=== PATIENT | female | born 1990 | race African-American/Black ===

== ENCOUNTER 2018-10-04 06:27 | Day surgery (SDC) | payer OTHER ==
[2018-10-02 10:22] LABS: Urine Appearance CLEAR; Urine Bilirubin NEGATIVE (NEG); Urine Blood NEGATIVE (NEG); Urine Color YELLOW; Urine Glucose NEGATIVE (NEG); Urine Protein NEGATIVE (NEG); Urine Specific Gravity 1.025 (1.005-1.030); Urine pH 6.5 (5.0-7.0)
[2018-10-02 10:23] LABS: Urine Microscopic Reflex NO UMIC
[2018-10-02 10:26] LABS: Absolute Lymphocytes (CBC) 2.3 K/uL (0.7-4.9); Absolute Monocytes 0.6 K/uL (0.1-1.3); Absolute Neutrophil 3.4 K/uL (1.8-8.0); Basophils % 0.6 % (0-1.3); Eosinophils % 2.6 % (0-4.4); Hematocrit 40.1 % (36.0-45.0); Lymphocytes % 35.1 % (15.3-44.8); Monocytes % 8.7 % (3.3-12.3); RBC Red Blood Cell Count 5.08 M/uL (3.86-4.86)
--- OUTSIDE RECORDS SUMMARY | 2018-10-04 06:30 | XMS REPORT | Summary of Care ---
:1990 Author Organization [facility] Address [address] [address], [place] [address]- Encounter HQ Farshad_alli(FIN) [phone] Date(s): 07/26/15 - 07/26/15 [facility] [address] [place] [address]- Discharge Disposition: Home Attending Physician: Kamilla Anne MD Vital Signs Most recent to oldest [Reference 1 2 3 Range]: Height 172.72 cm (07/26/15 5:25 PM) Temperature Oral [96.4-99.1 DegF] 98.6 DegF 98.6 DegF 99.2 DegF (07/26/15 9:40 PM) (07/26/15 7:33 PM) *HI* (07/26/15 5:25 PM) Blood Pressure [90-140/60-90 mmHg] 122/80 mmHg 126/78 mmHg 120/79 mmHg (07/26/15 9:40 PM) (07/26/15 8:58 PM) (07/26/15 7:33 PM) Respiratory Rate [14-20 BRMIN] 18 BRMIN 18 BRMIN 18 BRMIN (07/26/15 9:40 PM) (07/26/15 8:58 PM) (07/26/15 7:33 PM) Peripheral Pulse Rate [60-100 bpm] 95 bpm 101 bpm 113 bpm (07/26/15 9:40 PM) *HI* *HI* (07/26/15 8:58 PM) (07/26/15 7:33 PM) Weight 111.818 kg (07/26/15 5:25 PM) Body Mass Index 37.48 m2 (07/26/15 5:25 PM) Problem List No data available for this section Allergies, Adverse Reactions, Alerts Substance Reaction Severity Status iodine topical Active Latex Active NKDA Active Medications doxycycline hyclate 100 mg oral tablet 100 mg=1 tab, PO, Q12H, X 14 day, # 28 tab, 0 Refill(s) Start Date: 07/26/15 Stop Date: 08/09/15 Status: OrderedFlagyl 500 mg oral tablet 500 mg=1 tab, PO, Q8H, X 7 day, # 21 tab, 0 Refill(s) Start Date: 07/26/15 Stop Date: 08/02/15 Status: OrderedMotrin 600 mg oral tablet 600 mg=1 tab, PO, Q6H, PRN Pain, take with food, # 30 tab, 0 Refill(s) Start Date: 07/26/15 Status: OrderedRocephin + Sodium Chloride 0.9% IV 50 mL 250 mg, Route: IV, Drug form: PDR/INJ, ONCE, Dosing Weight 111.818, kg, Priority : STAT, Start date: 07/26/15 20:33:00, Stop date: 07/26/15 20:33:00 Notes: (Same As: Rocephin) Start Date: 07/26/15 Stop Date: 07/26/15 Status: CompletedSaline Flush 0.9% 10 mL, Route: IVP, Drug Form: INJ, Dosing Weight 97.727, kg, PRN, PRN Line Flush , Start date: 07/26/15 17:30:00, Duration: 30 day, Stop date: 08/25/15 18:29:00 Notes: (Same as: BD Posiflush) Start Date: 07/26/15 Stop Date: 07/27/15 Status: DiscontinuedSodium Chloride 0.9% (Bolus) IV 1,000 mL, 1,000 ml/hr, Infuse Over: 1 hr, Route: IV, 1,000, Drug form: INJ, ONCE , Priority: STAT, Dosing Weight 97.727 kg, Start date: 07/26/15 17:30:00, Duration: 1 doses or times, Stop date: 07/25/1616:30:00 Start Date: 07/26/15 Stop Date: 07/26/15 Status: CompletedZithromax 1,000 mg, 4 tab, Route: PO, Drug form: TAB, ONCE, Dosing Weight 111.818, kg, Start date: 07/26/15 20:33:00, Stop date: 07/26/15 20:33:00 Notes: Take 1 hour before or 2 hours after meals.(Same As: Zithromax) Start Date: 07/26/15 Stop Date: 07/26/15 Status: Completed Results BLOOD BANK RESULTS Most recent to oldest [Reference Range]: 1 ABO/Rh A POS *Unknown* (07/26/15 7:13 PM) Antibody Scrn Negative (07/26/15 7:13 PM) ELECTROLYTES Most recent to oldest [Reference Range]: 1 Sodium Lvl [135-145 mEq/L] 140 mEq/L (07/26/15 7:13 PM) Potassium Lvl [3.5-5.1 mEq/L] 3.7 mEq/L (07/26/15 7:13 PM) Chloride Lvl [95-109 mEq/L] 107 mEq/L (07/26/15:13 PM) CO2 [24-32 mEq/L] 26 mEq/L (07/26/15:13 PM) AGAP [10.0-20.0 mEq/L] 10.7 mEq/L (07/26/15 7:13 PM) CHEM PANEL Most recent to oldest [Reference Range]: 1 Creatinine Lvl [0.50-1.40 mg/dL] 0.91 mg/dL (07/26/15 7:13 PM) eGFR 104 mL/min/1.73m2 1 *NA* (07/26/15 7:13 PM) BUN [7-22 mg/dL] 6 mg/dL *LOW* (07/26/15:13 PM) B/C Ratio [6-25] 7 (07/26/15 7:13 PM) Glucose Lvl [70-99 mg/dL] 99 mg/dL (07/26/15 7:13 PM) Total Protein [6.4-8.4 g/dL] 7.4 g/dL (07/26/15 7:13 PM) Albumin Lvl [3.5-5.0 g/dL] 3.4 g/dL *LOW* (07/26/15:13 PM) Globulin [2.0-4.0 g/dL] 4.0 g/dL (07/26/15 7:13 PM) A/G Ratio [0.7-1.6] 0.8 (07/26/15 7:13 PM) Calcium Lvl [8.5-10.5 mg/dL] 8.4 mg/dL *LOW* (07/26/15 7:13 PM) ALT [0-65 unit/L] 17 unit/L (07/26/15 7:13 PM) AST [0-37 unit/L] 9 unit/L (07/26/15 7:13 PM) Alk Phos [39-136 unit/L] 64 unit/L (07/26/15 7:13 PM) Bili Total [0.2-1.3 mg/dL] 0.2 mg/dL (07/26/15 7:13 PM) 1Result Comment: The eGFR is calculated using the CKD-EPI formula. In most young , healthy individualsthe eGFR will be >90 mL/min/1.73m2. The eGFR declines with age. An eGFR of 60-89 may be normal in some populations, particularly the elderly, for whom the CKD-EPI formula has not been extensively validated. Use of the eGFR is not recommended in the following populations: Individuals with unstable creatinine concentrations, including patients and those with serious co-morbid conditions. Patients with extremes in muscle mass or diet. The data above are obtained from the National Kidney Disease Education Program ( NKDEP) which additionally recommends that when the eGFR is used in patients with extremes of body mass index for purposesof drug dosing, the eGFR should be multiplied by the estimated BMI.ENDOCRINOLOGY Most recent to oldest [Reference Range]: 1 hCG Tot <1 mIU/mL *NA* (07/26/15 7:13 PM) URINE AND STOOL Most recent to oldest [Reference Range]: 1 UA Turbidity [Clear] Clear (07/26/15 7:13 PM) UA Color [Yellow] Yellow *NA* (07/26/15 7:13 PM) UA pH [5.0-8.0] 5.0 (07/26/15 7:13 PM) UA Spec Grav [<=1.030] 1.014 (07/26/15 7:13 PM) UA Glucose [Negative mg/dL] Negative mg/dL *NA* (07/26/15 7:13 PM) UA Blood [Negative] Negative (07/26/15 7:13 PM) UA Ketones [Negative mg/dL] Negative mg/dL *NA* (07/26/15 7:13 PM) UA Protein [Negative mg/dL] Negative mg/dL (07/26/15 7:13 PM) UA Urobilinogen [0.1-1.0 mg/dL] <=1.0 mg/dL *NA* (07/26/15 7:13 PM) UA Bili [Negative] Negative *NA* (07/26/15 7:13 PM) UA Leuk Est [Negative] Negative (07/26/15 7:13 PM) UA Nitrite [Negative] Negative (07/26/15 7:13 PM) UA WBC [0-5 /HPF] <1 /HPF (07/26/15 7:13 PM) UA RBC [0-2 /HPF] <1 /HPF (07/26/15 7:13 PM) UA Bacteria [None Seen /HPF] Occasional /HPF *NA* (07/26/15 7:13 PM) UA Sq Epi [Few /LPF] Occasional /LPF *NA* (07/26/15 7:13 PM) UA Mucus [None Seen /LPF] Few /LPF *NA* (07/26/15 7:13 PM) HEMATOLOGY Most recent to oldest [Reference Range]: 1 WBC [3.7-10.4 K/CMM] 8.4 K/CMM (07/26/15 7:13 PM) RBC [4.20-5.40 M/CMM] 4.73 M/CMM (07/26/15 7:13 PM) Hgb [12.0-16.0 g/dL] 11.6 g/dL *LOW* (07/26/15 7:13 PM) Hct [36.0-48.0 %] 36.9 % (07/26/15 7:13 PM) MCV [80.0-98.0 fL] 78.1 fL *LOW* (07/26/15 7:13 PM) MCH [27.0-31.0 pg] 24.6 pg *LOW* (07/26/15 7:13 PM) MCHC [32.0-36.0 g/dL] 31.5 g/dL *LOW* (07/26/15 7:13 PM) RDW [11.5-14.5 %] 14.5 % (07/26/15 7:13 PM) Platelet [133-450 K/CMM] 280 K/CMM (07/26/15 7:13 PM) MPV [7.4-10.4 fL] 7.9 fL (07/26/15 7:13 PM) Segs [45.0-75.0 %] 68.2 % (07/26/15 7:13 PM) Lymphocytes [20.0-40.0 %] 21.8 % (07/26/15 7:13 PM) Monocytes [2.0-12.0 %] 8.2 % (07/26/15 7:13 PM) Eosinophils [0.0-4.0 %] 0.9 % (07/26/15 7:13 PM) Basophils [0.0-1.0 %] 0.9 % (07/26/15 7:13 PM) Segs-Bands # [1.5-8.1 K/CMM] 5.7 K/CMM (07/26/15 7:13 PM) Lymphocytes # [1.0-5.5 K/CMM] 1.8 K/CMM (07/26/15 7:13 PM) Monocytes # [0.0-0.8 K/CMM] 0.7 K/CMM (07/26/15 7:13 PM) Eosinophils # [0.0-0.5 K/CMM] 0.1 K/CMM (07/26/15 7:13 PM) Basophils # [0.0-0.2 K/CMM] 0.1 K/CMM (07/26/15 7:13 PM) Microcyte [None Seen] 1+ *ABN* (07/26/15 7:13 PM) MOLECULAR DIAGNOSTIC Most recent to oldest [Reference Range]: 1 Source [facility] Endocervix *NA* (07/26/15 8:17 PM) N gonorrhea by Amp Det ([facility]) [Negative] Negative *NA* (07/26/15 8:17 PM) C trachomatis by Amp Det ([facility]) [Negative] Negative *NA* (07/26/15 8:17 PM) Immunizations No data available for this section Procedures No data available for this section Social History Social History Type Response Smoking Status Never smoker; Type: Cigarettes; Exposure to Tobacco Smoke None; Cigarette Smoking Last 365 Days No; Reg Smoking Cessation Counseling No Assessment and Plan No data available for this section
--- OUTSIDE RECORDS SUMMARY | 2018-10-04 06:30 | XMS REPORT | Continuity of Care Document ---
:1990 Author Organization Interface Problems Problem Status Onset Classification Date Comments Source Date Reported Discharge 09/05/19 09/07/2016 [place] Diagnosis: 17 Cholelithiasis STOMACH PAIN Active 09/05/19 [facility] 17 [place] PELVIC PAIN Active 07/26/19 [facility] 16 Medications Medication Details Route Status Patient Ordering Order Source Instructions Provider Date Famotidine 20 20 mg=1 tab, Active MG Oral Tablet PO, BID, # 60 2016 [place] [Pepcid] tab, 0 Refill(s) Dicyclomine 20 mg=1 tab, Active Hydrochloride PO, 2017 [place] 20 MG Oral QID-Before Tablet [Bentyl] Meals, PRN Abdominal Pain, # 60 tab, 0 Refill(s) GI cocktail 30 mL, Route: Inactive PO, Drug 2016 [place] Form: SUSP, Dosing Weight 104.545, kg, ONCE, STAT, Start date: 09/04/16 2:23:00 CDT, Stop date: 09/04/16 2:23:00 CDTNotes: G.I. Cocktail=[place] with simethicone 22.5 mL - lidocaine viscous 7.5 mL Famotidine 20 mg, 2 mL, Inactive Route: IVP, 2016 [place] Drug form: INJ, ONCE, Dosing Weight 104.545, kg, Priority: STAT, Start date: 09/04/16 2:23:00 CDT, Stop date: 09/04/16 2:23:00 CDTNotes: (Same as: Pepcid) Can be dilute in 5-10cc NS IVP: Slow IV push over at least 2 minutes. Saline Flush 10 mL, Route: Inactive 0.9% IVP, Drug 2016 [place] Form: INJ, Dosing Weight 104.545, kg, PRN, PRN Line Flush, Start date: 09/04/16 2:23:00 CDT, Duration: 30 day, Stop date: 10/04/16 2:22:00 CDTNotes: (Same as: BD Posiflush) Sodium Chloride 1,000 mL, Inactive 0.154 MEQ/ML 2,000 ml/hr, 2017 [place] Injectable Infuse Over: Solution 30 minutes, Route: IV, 1,000, Drug form: INJ, ONCE, Priority: STAT, Dosing Weight 104.545 kg, Start date: 09/04/16 2:23:00 CDT, Duration: 1 doses or times, Stop date: 09/04/16 2:23:00 CDT Ibuprofen 600 600 mg=1 tab, Active MG Oral Tablet PO, Q6H, PRN 2015 [Motrin] Pain, take with food, # 30 tab, 0 Refill(s) Metronidazole 500 mg=1 tab, Active 500 MG Oral PO, Q8H, X 7 2015 [facility] Tablet [Flagyl] day, # 21 tab, 0 Refill(s) doxycycline 100 mg=1 tab, Active hyclate 100 mg PO, Q12H, X 2016 [facility] oral tablet 14 day, # 28 tab, 0 Refill(s) Zithromax 1,000 mg, 4 Inactive tab, Route: 2015 PO, Drug form: TAB, ONCE, Dosing Weight 111.818, kg, Start date: 07/26/15 20:33:00, Stop date: 07/26/15 20:33:00Notes : Take 1 hour before or 2 hours after meals. (Same As: Zithromax) Rocephin 250 mg, Inactive Route: IV, 2015 Drug form: PDR/INJ, ONCE, Dosing Weight 111.818, kg, Priority: STAT, Start date: 07/26/15 20:33:00, Stop date: 07/26/15 20:33:00Notes : (Same As: Rocephin) Saline Flush 10 mL, Route: No Longer 0.9% IVP, Drug Active 2015 Form: INJ, Dosing Weight 97.727, kg, PRN, PRN Line Flush, Start date: 07/26/15 17:30:00, Duration: 30 day, Stop date: 08/25/15 18:29:00Notes : (Same as: BD Posiflush) Sodium Chloride 1,000 mL, Inactive 0.154 MEQ/ML 1,000 ml/hr, 2015 [facility] Injectable Infuse Over: Solution 1 hr, Route: IV, 1,000, Drug form: INJ, ONCE, Priority: STAT, Dosing Weight 97.727 kg, Start date: 07/26/15 17:30:00, Duration: 1 doses or times, Stop date: 07/26/15 17:30:00 Allergies, Adverse Reactions, Alerts Substance Category Reaction Severity Reaction Status Date Comments Source type Reported iodine Assertion Drug Active topical allergy [place] Latex Assertion Drug Active allergy [place] Immunizations Immunization Date Given Site Status Last Updated Comments Source Results Order Name Results Value Reference Date Interpretation Comments Source Range URINE AND UA Turbidity Clear Clear 09/04 [place] (09/04/16 2:42 AM) URINE AND UA Color Yellow Yellow 09/04 [place] *NA* (09/04/16 2:42 AM) URINE AND UA pH 7.5 5.0 - 8.0 09/04 [place] URINE AND UA Spec Grav 1.010 <=1.030 09/04 [place] URINE AND UA Bili Negative Negative 09/04 [place] *NA* (09/04/16 2:42 AM) URINE AND UA Ketones Negative Negative 09/04 [place] *NA* (09/04/16 2:42 AM) URINE AND UA 0.2 EU/dL 0.1 - 1.0 09/04 [facility] Urobilinogen [place] URINE AND UA Blood Negative Negative 09/04 [place] (09/04/16 2:42 AM) URINE AND UA Glucose Negative Negative 09/04 STOOL [place] (09/04/16 2:42 AM) URINE AND UA Protein Negative Negative 09/04 [place] (09/04/16 2:42 AM) URINE AND UA Sq Epi Rare /LPF Few /LPF 09/04 [place] URINE AND UA Leuk Est Trace Negative 09/04 [place] *ABN* (09/04/16 2:42 AM) URINE AND UA RBC None Seen 0 - 2 09/04 STO[facility] /2016 [place] (09/04/16 2:42 AM) URINE AND UA WBC 0-2 /HPF None Seen 09/04 [facility] /HPF [place] URINE AND UA Nitrite Negative Negative 09/04 STOOL /2016 [place] (09/04/16 2:42 AM) URINE AND UA Bacteria Moderate None Seen 09/04 [facility] /HPF /HPF [place] CHEM PANEL Lipase Lvl 130 unit/L 73 - 393 09/04 [place] CHEM PANEL B/C Ratio 9 6 - 25 09/04 [place] CHEM PANEL AGAP 9.9 meq/L 10.0 - 09/04 MH 20.0 [place] CHEM PANEL Globulin 3.8 g/dL 2.7 - 4.2 09/04 [place] CHEM PANEL A/G Ratio 0.8 0.7 - 1.6 09/04 [place] CHEM PANEL Bili Total 0.2 mg/dL 0.2 - 1.3 09/04 [place] CHEM PANEL ASPARTATE 13 unit/L 0 - 37 09/04 [place] CHEM PANEL Total 6.9 g/dL 6.4 - 8.4 09/04 [place] CHEM PANEL Chloride Lvl 105 meq/L 95 - 109 09/04 [place] CHEM PANEL Potassium 3.9 meq/L 3.5 - 5.1 09/04 MH Lvl [place] CHEM PANEL Sodium Lvl 140 meq/L 135 - 145 09/04 [place] CHEM PANEL Creatinine 0.80 mg/dL 0.50 - 09/04 MH Lvl 1.40 [place] CHEM PANEL Glucose Lvl 99 mg/dL 70 - 99 09/04 [place] CHEM PANEL Calcium Lvl 8.5 mg/dL 8.5 - 10.5 09/04 [place] CHEM PANEL CO2 29 meq/L 24 - 32 09/04 [place] CHEM PANEL Alk Phos 62 unit/L 39 - 136 09/04 [place] CHEM PANEL Albumin Lvl 3.1 g/dL 3.5 - 5.0 09/04 [place] CHEM PANEL ALANINE 19 unit/L 0 - 65 09/04 AMINOTRANS [place] RASE CHEM PANEL BUN 7 mg/dL 7 - 09/04 [place] CHEM PANEL eGFR 121 09/04 Result Comment: The eGFR is calculated using the CKD-EPI formula. In most young, healthy individuals the eGFR will be >90 mL/ min/1.73m2. The eGFR declines with age. An eGFR of 60-89 may be normal in mL/min/1.7 some populations, particularly the elderly, for whom the CKD-EPI formula has not been extensively validated. Use of the eGFR is not recommended in the following populations: [address] Individuals with unstable creatinine concentrations, including patients and those with serious co-morbid conditions. Patients with extremes in muscle mass or diet. The data above are obtained from the National Kidney Disease Education Program (NKDEP) which additionally recommends that when the eGFR is used in patients with extremes of body mass index for purposes of drug dosing, the eGFR should be multiplied by the estimated BMI. ENDOCRINOL S Preg Negative Negative 09/04 [facility] [place] *NA* (09/04/16 2:37 AM) HEMATOLOGY MCHC 32.6 g/dL 32.0 - 09/04 MH 36.0 [place] HEMATOLOGY WBC X 10x3 7.1 K/CMM 3.7 - 10.4 09/04 [place] HEMATOLOGY RBC X 10x6 4.56 M/CMM 4.20 - 09/04 MH 5.40 [place] HEMATOLOGY RDW 14.2 % 11.5 - 09/04 MH 14.5 [place] HEMATOLOGY MPV 7.9 fL 7.4 - 10.4 09/04 [place] HEMATOLOGY Platelet 241 K/CMM 133 - 450 09/04 [place] HEMATOLOGY Hct 35.2 % 36.0 - 09/04 MH 48.0 [place] HEMATOLOGY Hgb 11.5 g/dL 12.0 - 09/04 MH 16.0 [place] HEMATOLOGY MCH 25.2 pg 27.0 - 09/04 MH 31.0 [place] HEMATOLOGY MCV 77.2 fL 80.0 - 09/04 MH 98.0 [place] HEMATOLOGY Eosinophils 0.2 K/CMM 0.0 - 0.5 09/04 MH # /2016 [place] HEMATOLOGY Monocytes # 0.6 K/CMM 0.0 - 0.8 09/04 [place] HEMATOLOGY Microcyte 1+ None Seen 09/04 [place] *ABN* (09/04/16 2:37 AM) HEMATOLOGY Eosinophils 2.9 % 0.0 - 4.0 09/04 [place] HEMATOLOGY Monocytes 8.6 % 2.0 - 12.0 09/04 [place] HEMATOLOGY Basophils 0.7 % 0.0 - 1.0 09/04 [place] HEMATOLOGY Lymphocytes 2.5 K/CMM 1.0 - 5.5 09/04 # /2017 [place] HEMATOLOGY Segs-Bands # 3.8 K/CMM 1.5 - 8.1 09/04 [place] HEMATOLOGY Lymphocytes 34.7 % 20.0 - 09/04 40.0 [place] HEMATOLOGY Segs 53.1 % 45.0 - 09/04 75.0 [place] Abdomen Abdomen RUQ Exam: Gallbladder Ultrasound 09/04 - [facility] RUQ US US /2016 - [place] Clinical indication: RUQ abdominal pain. Read by: Pete Cohen MD Dictated Date/time: 09/04/16 03:14 Electronically Signed by: Pete Cohen MD 09/04/16 03:39 FINAL REPORT Technique: Gallbladder ultrasound is performed. Findings: Exam shows normal liver measuring 15.1 cm. Cholelithiasis noted. Pancreas is visualized and normal. There is no intra or extrahepatic biliary duct dilation, with CBD=4 mm. Right kidney is normal and me asures 11 x 6.1 x 4.1 cm. There is no free fluid. Impression: 1. Cholelithiasis. MOLECULAR N gonorrhea Negative Negative 07/26 DIAGNOSTIC by Amp Det /2015 [facility] ([facility]) *NA* (07/26/15 8:17 PM) MOLECULAR Source Endocervix 07/26 DIAGNOSTIC [facility] /2015 [facility] *NA* (07/26/15 8:17 PM) MOLECULAR C Negative Negative 07/26 DIAGNOSTIC trachomatis [place] by Amp Det *NA* ([facility]) (07/26/15 8:17 PM) BLOOD BANK Antibody Negative 07/26 RESULTS Scrn [facility] (07/26/15 7:13 PM) BLOOD BANK ABO/Rh A POS 07/26 MH RESULTS /2015 [facility] CHEM PANEL B/C Ratio 7 6 - 25 07/26 [facility] CHEM PANEL A/G Ratio 0.8 0.7 - 1.6 07/26 [facility] CHEM PANEL Globulin 4.0 g/dL 2.0 - 4.0 07/26 [facility] CHEM PANEL AGAP 10.7 meq/L 10.0 - 07/26 MH 20.0 [facility] CHEM PANEL eGFR 104 07/26 Result Comment: The eGFR is calculated using the CKD-EPI formula. In most young, healthy individuals the eGFR will be >90 mL/ min/1.73m2. The eGFR declines with age. An eGFR of 60-89 may be normal in mL/min/1.7 /2015 some populations, particularly the elderly, for whom the CKD-EPI formula has not been extensively validated. Use of the eGFR is not recommended in the following populations: [facility] 3m2 Individuals with unstable creatinine concentrations, including patients and those with serious co-morbid conditions. Patients with extremes in muscle mass or diet. The data above are obtained from the National Kidney Disease Education Program (NKDEP) which additionally recommends that when the eGFR is used in patients with extremes of body mass index for purposes of drug dosing, the eGFR should be multiplied by the estimated BMI. CHEM PANEL CO2 26 meq/L 24 - 32 07/26 [facility] CHEM PANEL Albumin Lvl 3.4 g/dL 3.5 - 5.0 07/26 [facility] CHEM PANEL Total 7.4 g/dL 6.4 - 8.4 07/26 [facility] CHEM PANEL Chloride Lvl 107 meq/L 95 - 109 07/26 [facility] CHEM PANEL Calcium Lvl 8.4 mg/dL 8.5 - 10.5 07/26 [facility] CHEM PANEL Sodium Lvl 140 meq/L 135 - 145 07/26 [facility] CHEM PANEL Glucose Lvl 99 mg/dL 70 - 99 07/26 [facility] CHEM PANEL Creatinine 0.91 mg/dL 0.50 - 03 [facility] Lvl 1.40 /2015 [facility] CHEM PANEL BUN 6 mg/dL 7 - 22 07/26 [facility] CHEM PANEL Potassium 3.7 meq/L 3.5 - 5.1 07/26 MH Lvl /2015 [facility] CHEM PANEL Alk Phos 64 unit/L 39 - 136 07/26 [facility] CHEM PANEL AST 9 unit/L 0 - 37 07/26 [facility] CHEM PANEL ALT 17 unit/L 0 - 65 07/26 [facility] CHEM PANEL Bili Total 0.2 mg/dL 0.2 - 1.3 07/26 [facility] ENDOCRINOL hCG Tot null 07/26 OG [facility] HEMATOLOGY Microcyte 1+ None Seen 07/26 [facility] *ABN* (07/26/15 7:13 PM) HEMATOLOGY Monocytes 8.2 % 2.0 - 12.0 07/26 [facility] HEMATOLOGY Eosinophils 0.9 % 0.0 - 4.0 07/26 [facility] HEMATOLOGY Basophils 0.9 % 0.0 - 1.0 07/26 [facility] HEMATOLOGY Lymphocytes 21.8 % 20.0 - 07/26 40.0 [facility] HEMATOLOGY Eosinophils 0.1 K/CMM 0.0 - 0.5 07/26 # /2015 [facility] HEMATOLOGY Basophils # 0.1 K/CMM 0.0 - 0.2 07/26 [facility] HEMATOLOGY Segs-Bands # 5.7 K/CMM 1.5 - 8.1 07/26 [facility] HEMATOLOGY Lymphocytes 1.8 K/CMM 1.0 - 5.5 07/26 # /2015 [facility] HEMATOLOGY Monocytes # 0.7 K/CMM 0.0 - 0.8 07/26 [facility] HEMATOLOGY Segs 68.2 % 45.0 - 07/26 MH 75.0 /2015 [facility] HEMATOLOGY MCHC 31.5 g/dL 32.0 - 07/26 MH 36.0 [facility] MCH 24.6 pg 27.0 - 07/26 MH 31.0 [facility] HEMATOLOGY MCV 78.1 fL 80.0 - 07/26 MH 98.0 [facility] HEMATOLOGY MPV 7.9 fL 7.4 - 10.4 07/26 [facility] HEMATOLOGY Platelet 280 K/CMM 133 - 450 07/26 [facility] HEMATOLOGY RDW 14.5 % 11.5 - 07/26 MH 14. [facility] HEMATOLOGY Hct 36.9 % 36.0 - 07/26 MH 48.0 [facility] HEMATOLOGY Hgb 11.6 g/dL 12.0 - 07/26 MH 16.0 [facility] HEMATOLOGY RBC 4.73 M/CMM 4.20 - 07/26 MH 5.40 /2015 HEMATOLOGY WBC 8.4 K/CMM 3.7 - 10.4 07/26 [facility] URINE AND UA <=1.0 0.1 - 1.0 07/26 [facility] Urobilinogen mg/dL URINE AND UA WBC null 0 - 5 07/26 URINE AND UA Sq Epi Occasional Few /LPF 07/26 [facility] /LPF URINE AND UA RBC null 0 - 2 07/26 URINE AND UA Mucus Few /LPF None Seen 07/26 [facility] /LPF URINE AND UA Bacteria Occasional None Seen 07/26 [facility] /HPF /HPF URINE AND UA Bili Negative Negative 07/26 *NA* (07/26/15 7:13 PM) URINE AND UA Blood Negative Negative 07/26 (07/26/15 7:13 PM) URINE AND UA Nitrite Negative Negative 07/26 (07/26/15 7:13 PM) URINE AND UA Leuk Est Negative Negative 07/26 (07/26/15 7:13 PM) URINE AND UA Protein Negative Negative 07/26 [facility] mg/dL mg/dL URINE AND UA Ketones Negative Negative 07/26 [facility] mg/dL mg/dL URINE AND UA Glucose Negative Negative 07/26 [facility] mg/dL mg/dL URINE AND UA pH 5.0 5.0 - 8.0 07/26 [facility] URINE AND UA Spec Grav 1.014 <=1.030 07/26 [facility] URINE AND UA Turbidity Clear Clear 07/26 (07/26/15 7:13 PM) URINE AND UA Color Yellow Yellow 07/26 *NA* (07/26/15 7:13 PM) Vital Signs Vital Sign Value Date Comments Source Systolic (mm Hg) 120 09/04/2016 [facility] Diastolic (mm Hg) 83 09/04/2016 [facility] Respitory Rate 17 09/04/2016 [facility] Temperature Oral (F) 98.2 F 09/04/2016 [facility] Heart Rate 81 09/04/2016 [facility] Weight 104.545 09/04/2016 [facility] Systolic (mm Hg) 128 09/04/2016 [facility] Diastolic (mm Hg) 98 09/04/2016 [facility] Heart Rate 94 09/04/2016 [facility] Respitory Rate 18 09/04/2016 [facility] Temperature Oral (F) 98.1 F 09/04/2016 [facility] Systolic (mm Hg) 122 07/27/2015 [facility] Diastolic (mm Hg) 80 07/27/2015 [facility] Respitory Rate 18 07/27/2015 [facility] Heart Rate 95 07/27/2015 [facility] Temperature Oral (F) 98.6 F 07/27/2015 [facility] Systolic (mm Hg) 126 07/27/2015 [facility] Diastolic (mm Hg) 78 07/27/2015 [facility] Heart Rate 101 07/27/2015 [facility] Respitory Rate 18 07/27/2015 [facility] Respitory Rate 18 07/27/2015 [facility] Temperature Oral (F) 98.6 F 07/27/2015 [facility] Heart Rate 113 07/27/2015 [facility] Systolic (mm Hg) 120 07/27/2015 [facility] Diastolic (mm Hg) 79 07/27/2015 [facility] Temperature Oral (F) 99.2 F 07/26/2015 [facility] Height 172.72 cm 07/26/2015 [facility] BMI Calculated 37.48 07/26/2015 [facility] Weight 111.818 07/26/2015 [facility] Encounters Location Location Encounter Encounter Reason Attending ADM DC Status Source Details Type Number For Provider Date Date Visit [facility] [id number] Kamilla 07/25 07/26 Dino Anne /2015 [facility] Emergency [id number] Yogi 09/04 09/04 Dino Clancy /2016 [facility] Procedures Procedure Code Date Perfomer Comments Source
--- OUTSIDE RECORDS SUMMARY | 2018-10-04 06:30 | XMS REPORT | Summary of Care ---
:[address] [facility] Address [id number] [place] [id number] Encounter [facility]rest[facility](SAUL) [id number] Date(s): 09/04/16 - 09/04/[address] [phone] Discharge Diagnosis: Cholelithiasis Discharge Disposition: Home or Self Care Attending Physician: Yogi Clancy MD Vital Signs Most recent to oldest [Reference Range]: 1 2 Temperature Oral [96.4-99.1 DegF] 98.2 DegF 98.1 DegF (09/04/16 4:34 AM) (09/04/16 2:08 AM) Blood Pressure [90-140/60-90 mmHg] 120/83 mmHg 128/98 mmHg (09/04/16 4:34 AM) (09/04/16 2:08 AM) Respiratory Rate [14-20 BRMIN] 17 BRMIN 18 BRMIN (09/04/16 4:34 AM) (09/04/16 2:08 AM) Peripheral Pulse Rate [60-100 bpm] 81 bpm 94 bpm (09/04/16 4:34 AM) (09/04/16 2:08 AM) Weight 104.545 kg (09/04/16 2:08 AM) Problem List No data available for this section Allergies, Adverse Reactions, Alerts Substance Reaction Severity Status iodine topical Active Latex Active NKDA Active Medications Bentyl 20 mg oral tablet 20 mg=1 tab, PO, QID-Before Meals, PRN Abdominal Pain, # 60 tab, 0 Refill(s) Start Date: 09/04/16 Status: Orderedfamotidine 20 mg, 2 mL, Route: IVP, Drug form: INJ, ONCE, Dosing Weight 104.545, kg, Priority: STAT, Start date: 09/04/16 2:23:00 CDT, Stop date: 09/04/16 2:23:00 CDT Notes: (Same as: Pepcid)Can be dilute in 5-10cc NS IVP: Slow IV push over at least 2 minutes. Start Date: 09/04/16 Stop Date: 09/04/16 Status: CompletedGI cocktail 30 mL, Route: PO, Drug Form: SUSP, Dosing Weight 104.545, kg, ONCE, STAT, Start date: 09/04/16 2:23:00 CDT, Stop date: 09/04/16 2:23:00 CDT Notes: G.I. Cocktail=antacid with simethicone 22.5 mL - lidocaine viscous 7.5 mL Start Date: 09/04/16 Stop Date: 09/04/16 Status: CompletedPepcid 20 mg oral tablet 20 mg=1 tab, PO, BID, # 60 tab, 0 Refill(s) Start Date: 09/04/16 Status: OrderedSaline Flush 0.9% 10 mL, Route: IVP, Drug Form: INJ, Dosing Weight 104.545, kg, PRN, PRN Line Flush, Start date: 09/04/16 2:23:00 CDT, Duration: 30 day, Stop date: 10/04/16 2 :22:00 CDT Notes: (Same as: BD Posiflush) Start Date: 09/04/16 Stop Date: 09/04/16 Status: DiscontinuedSodium Chloride 0.9% (Bolus) IV 1,000 mL, 2,000 ml/hr, Infuse Over: 30 minutes, Route: IV, 1,000, Drug form: INJ , ONCE, Priority: STAT, Dosing Weight 104.545 kg, Start date: 09/04/16 2:23:00 CDT, Duration: 1 doses or times, Stop date: 09/04/16 2:23:00 CDT Start Date: 09/04/16 Stop Date: 09/04/16 Status: Completed Results ELECTROLYTES Most recent to oldest [Reference Range]: 1 Sodium Lvl [135-145 mEq/L] 140 mEq/L (09/04/16 2:37 AM) Potassium Lvl [3.5-5.1 mEq/L] 3.9 mEq/L (09/04/16 2:37 AM) Chloride Lvl [95-109 mEq/L] 105 mEq/L (09/04/16 2:37 AM) CO2 [24-32 mEq/L] 29 mEq/L (09/04/16 2:37 AM) AGAP [10.0-20.0 mEq/L] 9.9 mEq/L *LOW* (09/04/16 2:37 AM) CHEM PANEL Most recent to oldest [Reference Range]: 1 Creatinine Lvl [0.50-1.40 mg/dL] 0.80 mg/dL (09/04/16 2:37 AM) eGFR 121 mL/min/1.73m2 1 *NA* (09/04/16 2:37 AM) BUN [7-22 mg/dL] 7 mg/dL (09/04/16 2:37 AM) B/C Ratio [6-25] 9 (09/04/16 2:37 AM) Glucose Lvl [70-99 mg/dL] 99 mg/dL (09/04/16 2:37 AM) Total Protein [6.4-8.4 g/dL] 6.9 g/dL (09/04/16 2:37 AM) Albumin Lvl [3.5-5.0 g/dL] 3.1 g/dL *LOW* (09/04/16 2:37 AM) Globulin [2.7-4.2 g/dL] 3.8 g/dL (09/04/16 2:37 AM) A/G Ratio [0.7-1.6] 0.8 (09/04/16 2:37 AM) Calcium Lvl [8.5-10.5 mg/dL] 8.5 mg/dL (09/04/16 2:37 AM) ALT [0-65 unit/L] 19 unit/L (09/04/16 2:37 AM) AST [0-37 unit/L] 13 unit/L (09/04/16 2:37 AM) Alk Phos [39-136 unit/L] 62 unit/L (09/04/16 2:37 AM) Bili Total [0.2-1.3 mg/dL] 0.2 mg/dL (09/04/16 2:37 AM) Lipase Lvl [73-393 unit/L] 130 unit/L (09/04/16 2:37 AM) 1Result Comment: The eGFR is calculated using [...] Most recent to oldest [Reference Range]: 1 S Preg [Negative] Negative *NA* (09/04/16 2:37 AM) URINE AND STOOL Most recent to oldest [Reference Range]: 1 UA Turbidity [Clear] Clear (09/04/16 2:42 AM) UA Color [Yellow] Yellow *NA* (09/04/16 2:42 AM) UA pH [5.0-8.0] 7.5 (09/04/16 2:42 AM) UA Spec Grav [<=1.030] 1.010 (09/04/16 2:42 AM) UA Glucose [Negative] Negative (09/04/16 2:42 AM) UA Blood [Negative] Negative (09/04/16 2:42 AM) UA Ketones [Negative] Negative *NA* (09/04/16 2:42 AM) UA Protein [Negative] Negative (09/04/16 2:42 AM) UA Urobilinogen [0.1-1.0 EU/dL] 0.2 EU/dL (09/04/16 2:42 AM) UA Bili [Negative] Negative *NA* (09/04/16 2:42 AM) UA Leuk Est [Negative] Trace *ABN* (09/04/16 2:42 AM) UA Nitrite [Negative] Negative (09/04/16 2:42 AM) UA WBC [None Seen /HPF] 0-2 /HPF (09/04/16 2:42 AM) UA RBC [0-2] None Seen (09/04/16 2:42 AM) UA Bacteria [None Seen /HPF] Moderate /HPF (09/04/16 2:42 AM) UA Sq Epi [Few /LPF] Rare /LPF (09/04/16 2:42 AM) HEMATOLOGY Most recent to oldest [Reference Range]: 1 WBC [3.7-10.4 K/CMM] 7.1 K/CMM (09/04/16 2:37 AM) RBC [4.20-5.40 M/CMM] 4.56 M/CMM (09/04/16 2:37 AM) Hgb [12.0-16.0 g/dL] 11.5 g/dL *LOW* (09/04/16 2:37 AM) Hct [36.0-48.0 %] 35.2 % *LOW* (09/04/16 2:37 AM) MCV [80.0-98.0 fL] 77.2 fL *LOW* (09/04/16 2:37 AM) MCH [27.0-31.0 pg] 25.2 pg *LOW* (09/04/16 2:37 AM) MCHC [32.0-36.0 g/dL] 32.6 g/dL (09/04/16 2:37 AM) RDW [11.5-14.5 %] 14.2 % (09/04/16 2:37 AM) Platelet [133-450 K/CMM] 241 K/CMM (09/04/16 2:37 AM) MPV [7.4-10.4 fL] 7.9 fL (09/04/16 2:37 AM) Segs [45.0-75.0 %] 53.1 % (09/04/16 2:37 AM) Lymphocytes [20.0-40.0 %] 34.7 % (09/04/16 2:37 AM) Monocytes [2.0-12.0 %] 8.6 % (09/04/16 2:37 AM) Eosinophils [0.0-4.0 %] 2.9 % (09/04/16 2:37 AM) Basophils [0.0-1.0 %] 0.7 % (09/04/16 2:37 AM) Segs-Bands # [1.5-8.1 K/CMM] 3.8 K/CMM (09/04/16 2:37 AM) Lymphocytes # [1.0-5.5 K/CMM] 2.5 K/CMM (09/04/16 2:37 AM) Monocytes # [0.0-0.8 K/CMM] 0.6 K/CMM (09/04/16 2:37 AM) Eosinophils # [0.0-0.5 K/CMM] 0.2 K/CMM (09/04/16 2:37 AM) Microcyte [None Seen] 1+ *ABN* (09/04/16 2:37 AM) Immunizations No data available for this section Procedures No data available for this section Social History Social History Type Response Smoking Status Never smoker; Type: Cigarettes; Exposure to Tobacco Smoke None; Cigarette Smoking Last 365 Days No; Reg Smoking Cessation Counseling No Assessment and Plan No data available for this section
[2018-10-04] MEDS ORDERED: SCOPOLAMINE HYDROBROMIDE PATCH TD ONE (06:56)
[2018-10-04] MEDS ORDERED: Ringers Lactate 1,000 ML IV ONE (06:56)
[2018-10-04] MEDS ORDERED: NA CHLORIDE 0.9% 1,000 ML ONE (07:26)
[2018-10-04] MEDS ORDERED: PROPOFOL 200 MG/20 ML VIAL IV ONE (07:26)
[2018-10-04] MEDS ORDERED: ROCURONIUM 50 MG/5 ML VIAL IV ONE ×2 (07:27→09:24)
[2018-10-04] MEDS ORDERED: DEXAMETHASONE 10 MG/ML VIAL ONE (07:28)
[2018-10-04] MEDS ORDERED: GLYCOPYRROLATE 0.2 MG/ML SYR ONE (07:28)
[2018-10-04] MEDS ORDERED: LIDOCAINE 2% MPF 5 ML VIAL ONE (07:29)
[2018-10-04] MEDS ORDERED: FENTANYL CITR 250 MCG/5 ML ONE (07:29)
[2018-10-04] MEDS ORDERED: MIDAZOLAM HCL 2 MG/2 ML INJ ONE (07:30)
[2018-10-04] MEDS ORDERED: NEOSTIGMINE 1 MG/ML -10 ML VIAL ONE (07:32)
[2018-10-04] MEDS ORDERED: ONDANSETRON 4 MG/2 ML VIAL ONE ×2 (07:32→09:44)
[2018-10-04] MEDS: Ringers Lactate 1,000 ML IV ONE ×2 (08:34→08:36)
[2018-10-04] MEDS ORDERED: FENTANYL CITR 100 MCG/2 ML ONE (09:11)
[2018-10-04] MEDS ORDERED: KETOROLAC 30 MG/ML INJ ONE (09:32)
[2018-10-04] MEDS: HYDROMORPHONE HCL 1 MG/ML INJ ONE ×5 (09:57→10:20)
[2018-10-04] MEDS ORDERED: HYDROCODONE/APAP 5/325 MG TAB ONE (11:05)
--- NOTE | 2018-10-04 13:30 | OP ---
Date of Procedure: 10/04/2018 Surgeon: Delmis Coronel MD Preoperative Diagnoses: Menorrhagia, dysmenorrhea, pelvic pain. Postoperative Diagnoses: Menorrhagia, dysmenorrhea, pelvic pain, endometrial polyp through which the intrauterine device was placed, and endometriosis. Procedures Performed: 1.Diagnostic hysteroscopy, removal of intrauterine device, and endometrial polypectomy, dilation and curettage. 2.Diagnostic laparoscopy, endometriosis excision. Anesthesia: General endotracheal. Specimens: Endometrial polyp, endometriosis from right periureteric area, right posterior broad liga ment, cul-de-sac, left uterosacral ligament, and left lateral wall. Ovaries, tubes unremarkable. The rest of the peritoneal cavity without any signs of endometriosis. The appendix appeared to be long, slightly erythematous at the tip, however, no evidence of any infla mmation or endometriosis on it. Upper abdominal surface was completely unremarkable. The patient is a 27-year-old with complaints of heavy bleeding and severe cramping. She was evaluate d and then a transvaginal ultrasound was done. No adnexal masses were noted for treatment of her ble eding and cramps. She is 1, para 1, without any desire for conception any time soon, so a Mi lalo IUD was placed for treatment of these symptoms. 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 It was difficult to perform her daily activities due to this. There were bouts of diarrhea with stress, but no other symptoms with the bowels or urination during her periods. So on examination, her exam is with a slightly enlarged uterus. The rest of the things unremarkabl e. Strings in place. We discussed about the options of ongoing observation, removal of IUD with a t rial of oral contraceptives, or depot medroxyprogesterone. The patient desired to go ahead with diag nostic laparoscopy to diagnose endometriosis for sure, and then if found removal of endometriosis at the same time. Diagnostic hysteroscopy to look inside the cavity for any anatomical distortions of t he endometrial cavity. Once she was consented, she was brought to the hospital, re-consented, taken back to the OR, placed in supine fashion on the table. After general anesthesia was given, she was p laced in a dorsal lithotomy position. Pelvic exam was performed, unremarkable. Both adnexa negative . Abdomen, vulva, vagina, and perineum were prepped and draped in a sterile fashion. Amor was plac ed to drain the bladder. Speculum was placed to expose the cervix. Anterior lip grasped with 2 Cedrick s clamps. Diagnostic SlimLine hysteroscope was placed through the cervical canal. While traversing through the cervical canal, I was able to visualize the strings attached to the stem, which appeared to be caught in some tissue from the endometrial cavity. However, as I advanced the camera up the ce rvical canal into the uterine cavity, I discovered that the IUD was placed through the endometrial po lyp and the polyp was enclosing about 1/2 to 2/3 of the stem of the IUD and the polyp appeared to be arising from the fundus of the uterine cavity. The arms were placed in the correct direction, and it was lying in the right place touching the fundus. At this time, decision was made to remove the henrik yp and since the IUD went through the polyp, I had to remove the IUD in order to remove the polyp. S o, the diagnostic channel was changed to an operative channel, and then polyp forceps were placed thr ough here. The polyp was grasped after it from the tip of the fundus and scooted out. D and C was performed to gently curette the honeycutt for pathology. The diagnostic VCare was placed. Thi s area was then draped. A 1 cm infraumbilical incision was made with a scalpel, and using the open laparoscopy technique, fas riddhi was incised and peritoneum was entered. Fascia was tagged with 2-0 Vicryl sutures. S retractors placed. Karla introduced. Site of entry was checked and was unremarkable. Upper abdominal surfac e was completely unremarkable. No evidence of any endometriosis in the upper abdominal surfaces in t he abdominal peritoneum. The patient was placed in T-meka. The 5 mm suprapubic and left lower quadr ant ports were placed under direct vision. Then, after doing a survey of the pelvic cavity, the appe ndix unremarkable as dictated above and endometriosis found in the distal right periureteric area, po sterior broad ligament on the right, then left lateral wall, inferior and medial to the ureter on the left side and uterosacral ligament basically in the proximal medial part. There was a large implant in the posterior vaginal wall, right above the level of the reflection of the peritoneum onto the re ctum. All these implants were planned to be excised, first wanted to dissect the right ureter away f rom the peritoneum, then take this specimen, so peritoneum was opened laterally parallel to the urete r with laparoscopic scissors. Then, dissection was performed to dissect the ureter away from the per itoneum in the medial leaf of the broad ligament. Once this was done about 5 cm area, then the endom etriosis was excised with the help of the monopolar needle tip. All the tissue was excised to the po int that the underlying tissue was unremarkable. Then the posterior broad ligament specimen was pick ed up and it was widely excised as well from the underlying tissues in the uterine artery. Then on t he posterior cul-de-sac, the peritoneum of the cul-de-sac was opened up, then the incision was bo d superiorly towards the posterior wall using the monopolar Storz needle. Then the entire area of th e implant was excised on the rectovaginal septum. There was no entry into the vaginal canal, so ther e was no need for any closure, and I did not think that a closure would help a surgery at a later poi nt in time as it would pull the rectum up onto the posterior vaginal wall, which was not right anatom ically, so this was left alone. I went over to the left uterosacral ligament. This was picked up. The medial aspect of the cul-de-s ac was incised, the peritoneum with scissors, then the monopolar needle was used to dissect it from t he underlying tissues and remove. The lateral wall was picked up, so the incision around this with s cissors and removed with the help of the monopolar Storz needle after dissecting the structures media lly away from the peritoneum. All the implants were labeled appropriately, handed out for permanent pathology. Thorough irrigation and suction of the pelvic cavity were conducted, and then in order fo r me to perform the surgery, I needed to retract the epiploicae in the sigmoid colon, so the 3-0 [place] cryl suture with an SH needle was used to tag the epiploicae, and this was used to pull up retracting from the left upper quadrant using a Donta-Pedro needle. Once this was done, I was able to visu ivet and perform all the procedure as dictated above. This was removed at the end. Trocars were re moved. No evidence of any bleeding. Gas was desufflated. Karla was removed. The fascia was close d with 0 Vicryl in [id number] fashion. Subcutaneous tissues with 4-0 Vicryl in interrupted fash ion and Dermabond. VCare and Amor were removed, diagnostic VCare that was placed for manipulation, and the Amor were removed. Instrument, needle, and sponge counts at the end of case were correct wa s. She will follow up with me in 1 week. Estimated Blood Loss: Minimal. DIANA/SCOOTER Voice ID: [id number] Report ID: [id number]
== END 2018-10-04 11:45 | disposition home or self-care (01) ==
LOC: OR 06:27
PROVIDERS: ATTEND Obstetrics & Gynecology
PROC: 0UB94ZZ Excision of Uterus, Percutaneous Endoscopic Approach (ICD-10-PCS; 2018-10-04)
PROC: 0UBG4ZZ Excision of Vagina, Percutaneous Endoscopic Approach (ICD-10-PCS; 2018-10-04)
PROC: 0UBF4ZZ Excision of Cul-de-sac, Percutaneous Endoscopic Approach (ICD-10-PCS; 2018-10-04)
PROC: 0DBP4ZZ Excision of Rectum, Percutaneous Endoscopic Approach (ICD-10-PCS; 2018-10-04)
PROC: 0TB74ZZ Excision of Left Ureter, Percutaneous Endoscopic Approach (ICD-10-PCS; 2018-10-04)
PROC: 0UB98ZX Excision of Uterus, Via Natural or Artificial Opening Endoscopic, Diagnostic (ICD-10-PCS; 2018-10-04)
PROC: 0UDB8ZX Extraction of Endometrium, Via Natural or Artificial Opening Endoscopic, Diagnostic (ICD-10-PCS; 2018-10-04)
PROC: 0UB44ZZ Excision of Uterine Supporting Structure, Percutaneous Endoscopic Approach (ICD-10-PCS; principal; 2018-10-04 07:30)
DX: N80.3 Endometriosis of pelvic peritoneum (principal); N80.0 Endometriosis of uterus; N80.4 Endometriosis of rectovaginal septum and vagina; N80.8 Other endometriosis; N84.0 Polyp of corpus uteri; N93.0 Postcoital and contact bleeding; N92.1 Excessive and frequent menstruation with irregular cycle; N94.6 Dysmenorrhea, unspecified
CPT/HCPCS: 36415; 81003; 81025; 85025; 86850; 86900; 86901; 88305; J1100; J1170; J2250; J2405; J2704; J2710; J3010; J7030